=== PATIENT | female | born 1980 | race Caucasian/White ===

== ENCOUNTER 2016-09-09 15:02 | Emergency (ER) | payer OTHER ==
[~2016-09-09] VITALS: Ht 160 cm; Wt 85.1 kg
[~2016-09-09 15:02] MED LIST: ASPIRIN81 M2 PO; PRENATAL TABLE1 EACH PO
[2016-09-09 16:58] LABS: EOSINOPHIL (%) 0 % (0-5); HEMATOCRIT 41.5 % (36.0-46.0); IMMATURE GRANULOCYTE (%) 0.6 % (0.0-0.7); IMMATURE GRANULOCYTE COUNT 0.1 K/uL; INSTRUMENT ABS NEUTROPHIL CT 9.4 K/uL; LYMPHOCYTE COUNT 1.1 K/uL (1.0-2.8); MCHC 33.3 G/DL (30.0-36.0); MCV 90.2 FL (83-99); MEAN PLAT.VOLUME 10.2 uM^3 (9.5-12.4); MONOCYTE (%) 1.9 % (3-12); MONOCYTE COUNT 0.2 K/uL (0-0.8); NEUTROPHIL (%) 87.3 % (45-76); NEUTROPHIL COUNT 9.4 K/uL (1.8-6.4); PLATELET COUNT 308 K/uL (156-360); RBC DIS.WIDTH-CV 12.3 % (11.8-14.6); RBC DIS.WIDTH-SD 40.3 % (39-53); WHITE BLOOD COUNT 10.8 K/uL (4.1-10.2)
[2016-09-09 17:09] LABS: CHLORIDE 108 mEq/L (99-109); POTASSIUM 3.9 mEq/L (3.7-5.4); SODIUM 138 mEq/L (136-147)
[2016-09-09 17:12] LABS: ANION GAP 9 MEQ/L (2-14)
[2016-09-09 17:14] LABS: GFR ESTIMATE (CALCULATED) > 59 mL/min/; GLUCOSE 117 mg/dL (70-99)
[2016-09-09 17:15] LABS: UREA NITROGEN (BUN) 12 mg/dL (9-23)
[2016-09-09 17:18] LABS: D-DIMER ELISA 0.24 mg/L FEU (< 0.57)
[2016-09-09 18:05] VITALS: BP 138/95
== END 2016-09-09 18:06 | disposition home or self-care (01) ==
LOC: EME 15:02
PROVIDERS: Physician Assistant
DX: J20.9 Acute bronchitis, unspecified (principal); R00.0 Tachycardia, unspecified; Z79.82 Long term (current) use of aspirin
CPT/HCPCS: 71020; 80048; 85025; 85379; 93005; 94640; 94664; 99281; 99284

== ENCOUNTER → 2016-11-23 | Outpatient (CLI) | payer OTHER | END | disposition home or self-care (01) | LOC: RES 12:50 | DX: R06.02 Shortness of breath (principal) | CPT/HCPCS: 94070; 94726; 94729 ==

== ENCOUNTER 2017-06-29 05:48 | Emergency (ER) | payer BC ==
[~2017-06-29] VITALS: Ht 160 cm; Wt 86.0 kg
[2017-06-29] MEDS ORDERED: DELTASONE20 M1 PO (07:05)
[2017-06-29] MEDS ORDERED: PEPCID20 MG PO (07:05)
[2017-06-29 07:21] VITALS: BP 126/92
== END 2017-06-29 07:21 | disposition home or self-care (01) ==
LOC: EME 05:48
DX: J02.9 Acute pharyngitis, unspecified (principal); K21.9 Gastro-esophageal reflux disease without esophagitis
CPT/HCPCS: J7512

== ENCOUNTER 2017-08-12 06:37 | Day surgery (SDC) | payer BC ==
[~2017-08-12] VITALS: Ht 160 cm; Wt 82.5 kg
[~2017-08-12 06:37] MED LIST changes: +ASCORBIC ACID500 M3 PO; +DELTASONE20 M1 PO; +PEPCID20 MG PO; +TUMS500 MG PO; +VITAMIN B122500 MCG PO; +WOMEN MULTIVIT1 EACH PO; +ZANTAC150 MG PO; +ZINC50 M1 PO
[2017-08-12 07:56] VITALS: BP 123/82
[2017-08-12 10:20] VITALS: BP 127/69
[2017-08-12 11:11] VITALS: BP 136/74
== END 2017-08-12 11:25 | disposition home or self-care (01) ==
LOC: SDC 06:37
PROC: 0UT74ZZ Resection of Bilateral Fallopian Tubes, Percutaneous Endoscopic Approach (ICD-10-PCS; principal; 2017-08-12)
DX: Z30.2 Encounter for sterilization (principal); N83.8 Other noninflammatory disorders of ovary, fallopian tube and broad ligament; Z80.41 Family history of malignant neoplasm of ovary; I10 Essential (primary) hypertension; E78.5 Hyperlipidemia, unspecified; F41.9 Anxiety disorder, unspecified; L93.0 Discoid lupus erythematosus
CPT/HCPCS: 88302; 88305; 93005; J0330; J1100; J1170; J1885; J2405; J2710; J2765; J3010; Q0175; S0020